=== PATIENT | female | born 1955 | race Caucasian/White ===

== ENCOUNTER 2019-03-12 09:23 | Inpatient (IN) ==
[2019-03-12] MEDS ORDERED: IPRATROPIUM/ALBUTEROL 3 ML AMPUL.NEB NEB ONE ×2 (09:30→12:00)
--- NOTE | 2019-03-12 09:36 | Emergency Department Note ---
SOB HPI - General Chief Complaint: Shortness of Breath/Dyspnea Stated Complaint: SOB Time Seen by Provider: 03/12/19 09:31 Mode of arrival: EMS - History of Present Illness This patient is an asthmatic who was seen in minor care couple days ago and started on some prednisone but no antibiotic. She has been coughing bringing up some yellow phlegm. She has a rescue inhaler but is awaiting prescriptions for her nebulizer. - Related Data Home Medications Medication Instructions Recorded Confirmed albuterol sulfate 2.5 mg/3 mL 2.5 mg INHALATION BID ml 05/29/16 03/08/19 (0.083 %) solution for nebulization albuterol sulfate HFA 90 2 puff INHALATION Q6H g 05/29/16 03/08/19 mcg/actuation aerosol inhaler amlodipine 5 mg tablet 5 mg PO QHS tab 05/29/16 03/08/19 aspirin 81 mg tablet,delayed 81 mg PO .COMPLEX 05/29/16 03/08/19 release bupropion HCl SR 150 mg tablet,12 150 mg PO BID 05/29/16 03/08/19 hr sustained-release ipratropium-albuterol 0.5 mg-3 3 ml INHALATION BID ml 05/29/16 03/08/19 mg(2.5 mg base)/3 mL nebulization soln levothyroxine 75 mcg tablet 75 mcg PO QAM tab 05/29/16 03/08/19 liothyronine 5 mcg tablet 5 mcg PO QHS tab 05/29/16 03/08/19 lorazepam 1 mg tablet See Rx Instructions PO QHS 05/29/16 03/08/19 losartan 100 mg tablet 100 mg PO QAM tab 05/29/16 03/08/19 meclizine 25 mg chewable tablet 25 mg PO TID 05/29/16 03/08/19 metformin ER 500 mg 500 mg PO BID tab 05/29/16 03/08/19 tablet,extended release 24 hr methocarbamol 750 mg tablet See Rx Instructions PO .COMPLEX 05/29/16 03/08/19 multivitamin tablet 1 tab-cap PO QDAY 05/29/16 03/08/19 nefazodone 200 mg tablet 200 mg PO BID 05/29/16 03/08/19 omeprazole 20 mg capsule,delayed 20 mg PO QAM cap 05/29/16 03/08/19 release pravastatin 40 mg tablet 40 mg PO QHS 05/29/16 03/08/19 Previous Rx's Medication Instructions Recorded hydroxychloroquine 200 mg tablet 200 mg PO BID #60 tab 02/09/18 prednisone 50 mg tablet 50 mg PO QDAY 5 Days #5 tab 03/08/19 Azithromycin [Zithromax] 250 mg PO DAILY #4 tab 03/12/19 Allergies Allergy/AdvReac Type Severity Reaction Status Date / Time hydrocodone AdvReac Intermediate bad Verified 03/08/19 09:07 dreams, hallucinations Review of Systems All systems ED: reviewed and negative except as stated. Past Medical History - Past Medical History [facility] Narrative: Medical History (Last Reviewed 03/08/19 @ 09:11 by Meagan Aguilera PA-C) Knee pain, bilateral (Acute) Osteoarthritis (Chronic) Rheumatoid arthritis (Chronic) Encounter for long-term current use of high risk medication (Chronic) Inflammatory arthritis (Chronic) Pain in both hands (Chronic) Anxiety and depression (Chronic) Pain in joint (Chronic) Diabetes mellitus, type II (Chronic) Right knee injury (Chronic) Tendonitis (Chronic) Right wrist pain (Chronic) Asthma (Chronic) Hypothyroidism (Chronic) Decreased libido (Chronic) Hypertension (Chronic) Depression (Chronic) Hyperlipidemia (Chronic) Past Surgical History (Last Reviewed 03/08/19 @ 09:11 by Meagan Aguilera PA-C) Hx of arthroscopy of right knee (Chronic) Family History (Last Reviewed 03/08/19 @ 09:11 by Meagan Aguilera PA-C) Other No pertinent family history Medical history: Reports: asthma, other Surgical history ED: Reports: other - Social History smoking status: Never smoker Alcohol use: Reports: Unknown Drug use: Reports: none Physical Exam Limitations: no limitations General appearance: alert Head: atraumatic Eye: Present: normal appearance ENT: normal exam Neck: Present: normal inspection Chest: Present: normal inspection Respiratory: Present: wheezes Cardiovascular: Present: regular rate, normal rhythm, normal heart sounds Abdominal: Present: soft. Absent: distention, tenderness Neurological: Present: alert Psychiatric: Present: normal affect Skin: Present: warm, dry Course Vital Signs Temperature 99.0 F 03/12/19 09:24 Pulse Rate 89 03/12/19 09:24 Respiratory Rate 15 03/12/19 09:24 Blood Pressure 156/68 03/12/19 09:24 Pulse Oximetry (%) 89 L 03/12/19 09:24 Temperature 99.0 F 03/12/19 09:24 Pulse Rate 88 03/12/19 11:18 Respiratory Rate 18 03/12/19 09:47 Blood Pressure 124/68 03/12/19 11:02 Pulse Oximetry (%) 93 03/12/19 11:18 Shortness of Breath/Dyspnea - MDM Narrative Medical decision making narrative: Lab work and chest x-ray were unremarkable. - Lab Data Lab results reviewed: Yes I reviewed the patient's lab results. Result diagrams: 03/12/19 09:41 03/12/19 09:41 Lab Results 03/12/19 03/12/19 03/12/19 Range/Units 09:41 09:41 09:41 WBC 5.1 (4.5-11.0) K/mcL RBC 4.31 (4.00-5.20) M/mcL Hgb 12.4 (12.0-15.0) g/dL Hct 37.6 (36.0-48.0) % MCV 87.3 (80.0-100.0) fL MCH 28.9 (26.0-34.0) pg MCHC 33.0 (31.0-36.0) g/dL RDW 16.4 H (11.5-14.5) % Plt Count 225 (140-440) K/mcL MPV 7.7 (7.4-10.4) fL Gran % 63.2 (38.0-78.0) % Lymph % (Auto) 26.9 (15.5-49.0) % [place] % (Auto) 9.5 (1.0-12.0) % Eos % (Auto) 0.1 (0.0-7.0) % Baso % (Auto) 0.3 (0.0-2.0) % Gran # 3.2 (1.8-8.0) K/mcL Lymph # (Auto) 1.4 L (1.5-4.8) K/mcL [place] # (Auto) 0.5 (0.1-0.9) K/mcL Eos # (Auto) 0 (0.0-0.7) K/mcL Baso # (Auto) 0 (0.0-0.3) K/mcL VBG Lactic Acid 1.1 (0.5-2.0) mmol/L Sodium 135 (133-145) mmol/L Potassium 3.4 (3.3-5.1) mmol/L Chloride 100 (96-108) mmol/L Carbon Dioxide 26 (22-30) mmol/L Anion Gap 9.0 (8-16) BUN 13 (8-23) mg/dl Creatinine 0.7 (0.6-1.1) mg/dl GFR Calculation 92 Glucose 96 (70-105) mg/dL Calcium 8.2 L (8.6-10.4) mg/dl Total Bilirubin 0.2 (0.0-1.0) mg/dL AST 17 (0-37) U/l ALT 17 (0-40) U/l Alkaline Phosphatase 62 (39-117) U/L Total Protein 5.9 (5.9-8.4) gm/dL Albumin 3.5 (3.2-5.2) gm/dL Globulin 2.4 (2.2-3.7) gm/dL Albumin/Globulin Ratio 1.5 (1.0-2.3) - Radiology Data Radiology results reviewed: Yes I reviewed the patient's radiology results. Disposition Pt seen by [facility]/PA only: No Clinical Impression: Asthma with exacerbation, Bronchitis Disposition: Home, Self-Care Condition: Good Instructions: Asthma (ED), Acute Bronchitis (ED) Prescriptions: Azithromycin [Zithromax] 250 mg PO DAILY #4 tab Referrals: Cassie Hutchinson [Primary Care Provider] - Time of Disposition: 11:54
[2019-03-12] MEDS ORDERED: ONDANSETRON 4 MG/2 ML VIAL IV ONE (09:56)
[2019-03-12] MEDS ORDERED: AZITHROMYCIN 500 MG in DEXTROSE 5% IN WATER 250 ML IV ONE (09:57)
[2019-03-12 10:23] LABS: Basophils # (Auto) 0 K/mcL (0.0-0.3); Basophils % (Auto) 0.3 % (0.0-2.0); Eosinophils # (Auto) 0 K/mcL (0.0-0.7); Eosinophils % (Auto) 0.1 % (0.0-7.0); Granulocytes % (Auto) 63.2 % (38.0-78.0); Lymphocytes # (Auto) 1.4 K/mcL (1.5-4.8); Lymphocytes % (Auto) 26.9 % (15.5-49.0); Mean Cell Volume 87.3 fL (80.0-100.0); Monocytes # (Auto) 0.5 K/mcL (0.1-0.9); Monocytes % (Auto) 9.5 % (1.0-12.0); Platelet Count 225 K/mcL (140-440); RBC 4.31 M/mcL (4.00-5.20); Red Cell Distribution Width 16.4 % (11.5-14.5)
[2019-03-12 10:41] LABS: ALT/SGPT 17 U/l (0-40); Albumin 3.5 gm/dL (3.2-5.2); Albumin/Globulin Ratio 1.5 (1.0-2.3); Alkaline Phosphatase 62 U/L (39-117); Blood Urea Nitrogen 13 mg/dl (8-23)
--- NOTE | 2019-03-12 13:21 | Internal Med History&Physical ---
Medical - H&P: [facility] Patient information: Note initiated : 03/12/19 at 1:18 pm Service Date, if different from initiated Date: [] Patient: Tracy Adams a 64 y/o F admitted on for Shortness of breath. Chief Complaint: [] History of present illness: Ms. Adams is a 64 year old F Is with increasing shortness of breath and cough. Patient states that on Wednesday she developed a productive cough that worsened throughout the week and is productive of yellow sputum. She had shortness shortness of breath which start ed on Wednesday. She went to [place] care and was given prednisone and a prescription for nebulizer as her home nebulizer had broken in the past. She did have her home inhalers which she did use and they gave her some relief but not significant. Last night she can hardly sleep because of shortness of breath and cough and this felt she needed to come in the ED today. In the ED she had a chest x-ray which showed a questionable infiltrate. She was given several breathing treatments and azithromycin. However her peak expiratory flow is 50% of expected and she was becoming hypoxic even off oxygen with sats between 85% to 90. Because of the hypoxia and the still labored breathing admission was requested. She has been around sick contacts. She has felt wheezy. She has a headache. Denies fevers or chills. Occasional nausea Review of Systems: Pertinent positives as above. Denies fever/chills/vomiting/abdominal pain/diarrhea. Remaining 10 point review of systems reviewed negative Medical - H&P: PM Medical history: Medical History (Last Reviewed 03/08/19 @ 09:11 by Meagan Aguilera PA-C) Knee pain, bilateral (Acute) Osteoarthritis (Chronic) Rheumatoid arthritis (Chronic) Encounter for long-term current use of high risk medication (Chronic) Inflammatory arthritis (Chronic) Pain in both hands (Chronic) Anxiety and depression (Chronic) Pain in joint (Chronic) Diabetes mellitus, type II (Chronic) Right knee injury (Chronic) Tendonitis (Chronic) Right wrist pain (Chronic) Asthma (Chronic) Hypothyroidism (Chronic) Decreased libido (Chronic) Hypertension (Chronic) Depression (Chronic) Hyperlipidemia (Chronic) Past Surgical History (Last Reviewed 03/08/19 @ 09:11 by Meagan Aguilera PA-C) Hx of arthroscopy of right knee (Chronic) Right knee arthroplasty [address] Torrez Social History (Last Updated 03/08/19 @ 09:50 by Meagan Aguilera PA-C) Patient denies tobacco but has been exposed to secondhand smoke growing up Denies alcohol use His uses a cane since having a total knee arthroplasty Medical - H&P: Meds Home Medications Medication Instructions Recorded Confirmed Type albuterol sulfate 2.5 mg/3 mL 2.5 mg INHALATION BID ml 05/29/16 03/08/19 History (0.083 %) solution for nebulization albuterol sulfate HFA 90 2 puff INHALATION Q6H g 05/29/16 03/08/19 History mcg/actuation aerosol inhaler amlodipine 5 mg tablet 5 mg PO QHS tab 05/29/16 03/08/19 History aspirin 81 mg tablet,delayed 81 mg PO .COMPLEX 05/29/16 03/08/19 History release bupropion HCl SR 150 mg tablet,12 150 mg PO BID 05/29/16 03/08/19 History hr sustained-release ipratropium-albuterol 0.5 mg-3 3 ml INHALATION BID ml 05/29/16 03/08/19 History mg(2.5 mg base)/3 mL nebulization soln levothyroxine 75 mcg tablet 75 mcg PO QAM tab 05/29/16 03/08/19 History liothyronine 5 mcg tablet 5 mcg PO QHS tab 05/29/16 03/08/19 History lorazepam 1 mg tablet See Rx Instructions PO QHS 05/29/16 03/08/19 History losartan 100 mg tablet 100 mg PO QAM tab 05/29/16 03/08/19 History meclizine 25 mg chewable tablet 25 mg PO TID 05/29/16 03/08/19 History metformin ER 500 mg 500 mg PO BID tab 05/29/16 03/08/19 History tablet,extended release 24 hr methocarbamol 750 mg tablet See Rx Instructions PO .COMPLEX 05/29/16 03/08/19 History multivitamin tablet 1 tab-cap PO QDAY 05/29/16 03/08/19 History nefazodone 200 mg tablet 200 mg PO BID 05/29/16 03/08/19 History omeprazole 20 mg capsule,delayed 20 mg PO QAM cap 05/29/16 03/08/19 History release pravastatin 40 mg tablet 40 mg PO QHS 05/29/16 03/08/19 History hydroxychloroquine 200 mg tablet 200 mg PO BID #60 tab 02/09/18 03/08/19 Rx prednisone 50 mg tablet 50 mg PO QDAY 5 Days #5 tab 03/08/19 03/08/19 Rx Azithromycin [Zithromax] 250 mg PO DAILY #4 tab 03/12/19 Rx Allergies Allergy/AdvReac Type Severity Reaction Status Date / Time hydrocodone AdvReac Intermediate bad Verified 03/08/19 09:07 dreams, hallucinations Medical - H&P: Exam - Constitutional Vitals: Temp Pulse Resp BP Pulse Ox 99.0 F 93 H 23 H 131/80 92 03/12/19 09:24 03/12/19 12:34 03/12/19 11:31 03/12/19 11:31 03/12/19 12:34 Exam: General: Alert, Awake, No acute Distress Eyes/N/T: EOMI, PEERL, Head/Neck: neck supple, normocephalic atraumatic CV: RRR, No murmurs, normal s1/s2 Pulm: Bilateral mild rhonchi, occasional wheeze, appears labored Abd: soft, nontender, +BS x4 Ext: no clubbing/cyanosis/edema Neuro: Alert, no focal deficits, moves all extremities, CN 2-12 grossly intact, symmetrical strength b/l upper/lower, sensations intact b/l upper/lower Skin: warm/dry Medical - H&P: Reslt - Labs CBC & Chem 7: 03/12/19 09:41 03/12/19 09:41 Labs: Short CBC 03/12/19 Range/Units 09:41 WBC 5.1 (4.5-11.0) K/mcL Hgb 12.4 (12.0-15.0) g/dL Hct 37.6 (36.0-48.0) % Plt Count 225 (140-440) K/mcL BMP 03/12/19 09:41 Sodium 135 Potassium 3.4 Chloride 100 Carbon Dioxide 26 BUN 13 Creatinine 0.7 Glucose 96 Calcium 8.2 L Liver Function 03/12/19 Range/Units 09:41 Total Bilirubin 0.2 (0.0-1.0) mg/dL AST 17 (0-37) U/l ALT 17 (0-40) U/l Alkaline Phosphatase 62 (39-117) U/L Albumin 3.5 (3.2-5.2) gm/dL Medical - H&P: A/P - Narrative A/P Narrative: A: *Acute hypoxic respiratory failure: Secondary to likely viral illness inducing exacerbation of her underlying asthma *Acute Asthmatic Bronchitis: PEF 57% *DM: *HTN/HLD: *Depression/anxiety: *Rheumatoid arthritis: Follows with Dr. Stoll *GERD: *Hypothyroidism: * P: -IV steroids -Empiric antibiotics, pending pro-calcitonin -Respiratory viral panel -Serial peak expiratory flow -Continuous pulse ox -IS/Acapella, Nebs/RT - -Continue home blood pressure and diabetic medications -SSI -ppx: Lovenox
[2019-03-12] MEDS ORDERED: DEXTROSE 31 GM ORAL.SUSP PO PRN (14:24)
[2019-03-12] MEDS ORDERED: DEXTROSE 50% 50 ML VIAL IV PRN (14:24)
[2019-03-12] MEDS ORDERED: PROCHLORPERAZINE 10 MG/2 ML VIAL IV PRN (14:24)
[2019-03-12] MEDS ORDERED: ONDANSETRON 4 MG ODT TABLET SL PRN (14:24)
[2019-03-12] MEDS ORDERED: IPRATROPIUM/ALBUTEROL 3 ML AMPUL.NEB NEB PRN (14:24)
--- NOTE | 2019-03-12 14:26 | XRay Report ---
HISTORY: Cough and shortness of breath FINDINGS: There is a mild patchy alveolar infiltrate in the left lower lobe. The remainder of the lung ascencio are clear. There is no pleural effusion or evidence of adenopathy. The heart size is normal. The spine is kyphotic and there is mild arthritis. IMPRESSION: Mild left lower lobe pneumonia Interpreted and Authenticated by: Yvan Gil 03/12/19
[2019-03-12] MEDS ORDERED: METHOCARBAMOL 750 MG TABLET PO PRN (14:27)
[2019-03-12] MEDS ORDERED: MELATONIN 3 MG TABLET PO PRN (14:45)
[2019-03-12] MEDS: methylPREDNISolone SOD SUCC 40 MG/ML VIAL IV SCH ×2 (15:27→22:56)
[2019-03-12] MEDS: 0.9 % SODIUM CHLORIDE 10 ML SYRINGE IV SCH ×2 (15:28→21:03)
[2019-03-12] MEDS: metFORMIN 500 MG TAB.XL.24H PO SCH (17:55)
[2019-03-12] MEDS: INSULIN LISPRO 1 UNIT/0.01 ML UNIT SQ SCH ×2 (17:56→21:01)
[2019-03-12] MEDS: IPRATROPIUM/ALBUTEROL 3 ML AMPUL.NEB NEB SCH (19:16)
[2019-03-12] MEDS: LORazepam 1 MG TABLET PO SCH (20:42)
[2019-03-12] MEDS: LIOTHYRONINE 5 MCG TABLET PO SCH (21:02)
[2019-03-12] MEDS: SIMVASTATIN 20 MG TABLET PO SCH (21:03)
[2019-03-12] MEDS: NEFAZODONE HCL 200 MG PO SCH (21:03)
[2019-03-12] MEDS: FAMOTIDINE 20 MG TABLET PO SCH (21:03)
[2019-03-12] MEDS: amLODIPine 5 MG TABLET PO SCH (21:03)
[2019-03-12] MEDS: buPROPion 150 MG TAB.SR.12H PO SCH (21:04)
[2019-03-12] MEDS: ACETAMINOPHEN 325 MG TABLET PO PRN (21:19)
[2019-03-13] MEDS: IPRATROPIUM/ALBUTEROL 3 ML AMPUL.NEB NEB SCH ×4 (01:09→18:52)
[2019-03-13] MEDS ORDERED: METHOCARBAMOL 750 MG TABLET PO PRN (06:15)
[2019-03-13] MEDS: 0.9 % SODIUM CHLORIDE 10 ML SYRINGE IV SCH ×3 (06:39→22:37)
[2019-03-13] MEDS: methylPREDNISolone SOD SUCC 40 MG/ML VIAL IV SCH ×3 (06:39→22:31)
--- NOTE | 2019-03-13 06:39 | Internal Med Progress Note ---
Medical - PN: Subj Patient information: Note initiated : 03/13/19 at 6:35 am Service Date, if different from initiated Date: [] Patient: Tracy Adams a 64 y/o F admitted on 03/12/19 for Shortness of breath. Chief Complaint: [] Interval history: Ms. Adams is a 64 year old F Is with increasing shortness of breath and cough. Patient states that on Wednesday she developed a productive cough that worsened throughout the week and is productive of yellow sputum. She had shortness shortness of breath which starte d on Wednesday. She went to [place] care and was given prednisone and a prescription for nebulizer as her home nebulizer had broken in the past. She did have her home inhalers which she did use and they gave her some relief but not significant. Last night she can hardly sleep because of shortness of breath and cough and this felt she needed to come in the ED today. In the ED she had a chest x-ray which showed a questionable infiltrate. She was given several breathing treatments and azithromycin. However her peak expiratory flow is 50% of expected and she was becoming hypoxic even off oxygen with sats between 85% to 90. Because of the hypoxia and the still labored breathing admission was requested. She has been around sick contacts. She has felt wheezy. She has a headache. Denies fevers or chills. Occasional nausea 4/15 Difficult to sleep in the hospital per the patient. She has continued shortness of breath and productive cough which is becoming less yellow she says. However her shortness of breath and cough are improving. No other new complaints. Review of Systems: denies headache/fever/chills/nausea/vomiting/chest or abdominal pain/diarrhea. Otherwise see above. - Constitutional Vitals: Vital Signs Temp Pulse Resp BP Pulse Ox 97.5 F 76 20 125/65 94 03/13/19 04:00 03/13/19 04:00 03/13/19 04:00 03/13/19 04:00 03/13/19 04:00 Period Temp Pulse Resp BP Sys/Guajardo Pulse Ox Last 24 Hr 97.5 F-99.0 F 74-94 15-24 124-156/55-81 2-94 Intake and Output 03/12/19 03/13/19 03/13/19 21:59 05:59 13:59 Intake Total 400 Output Total 1202 302 Balance -1202 98 Weight 109.316 kg Intake & Output: Intake & Output 03/12/19 03/13/19 03/13/19 21:59 05:59 13:59 Intake Total 400 Output Total 1202 302 Balance -1202 98 Weight 109.316 kg Intake: Oral 400 Output: Void Amount 1200 300 # of times incontinent of urine 2 2 Other: Meal Dinner Percent of Meal Consumed 75% Urine Appearance Clear Urine Color Pale Urine Odor Normal # Voids 1 Exam: General: Alert, Awake, No acute Distress Eyes/N/T: EOMI, Head/Neck: neck supple, CV: RRR, No murmurs, Pulm: Improved rhonchi, occasional wheeze, nonlabored Abd: soft, nontender, +BS x4 Ext: no clubbing/cyanosis, trace bilateral lower extremity edema Neuro: Alert, no focal deficits, moves all extremities, Skin: warm/dry Medical - PN: Obj Da - Labs CBC & Chem 7: 03/12/19 09:41 03/12/19 09:41 Labs: Abnormal Lab Results 03/12/19 03/12/19 09:41 09:41 RDW 16.4 H Lymph # (Auto) 1.4 L Calcium 8.2 L Meds: Medications Acetaminophen (Tylenol) 650 mg PO Q6HP PRN PRN Reason: PAIN/FEVER > 101 Last Admin: 03/12/19 21:19 Dose: 650 mg Documented by: Albuterol/Ipratropium (Duoneb) 3 ml NEB Q6HRT [facility] Last Admin: 03/13/19 01:09 Dose: 3 ml Documented by: Albuterol/Ipratropium (Duoneb) 3 ml NEB Q6HRT PRN PRN Reason: Bronchospasm Amlodipine Besylate (Norvasc) 5 mg PO QHS [facility] Last Admin: 03/12/19 21:03 Dose: 5 mg Documented by: Aspirin (Aspirin) 81 mg PO MoWeFr@0900 [facility] Bupropion HCl (Wellbutrin Sr) 150 mg PO BID [facility] Last Admin: 03/12/19 21:04 Dose: Not Given Documented by: Dextrose (Dextrose 50%) 0 ml IV UD PRN PRN Reason: Hypoglycemia Diagnostic Test (Pha) (Accu-Chek) 1 each FS ACHS [facility] Last Admin: 03/12/19 20:42 Dose: 1 each Documented by: Enoxaparin Sodium (Lovenox) 40 mg SQ DAILY [facility] Famotidine (Pepcid) 20 mg PO BID [facility] Last Admin: 03/12/19 21:03 Dose: 20 mg Documented by: Glucose (Insta-Glucose) 15 gm PO PRN PRN PRN Reason: Hypoglycemia Azithromycin 500 mg/ Dextrose 250 mls @ 250 mls/hr IV Q24H [facility]; Protocol Stop: 03/15/19 09:59 Insulin Human Lispro (Humalog) 0 unit SQ [facility]; Protocol Last Admin: 03/12/19 21:01 Dose: 4 units Documented by: [facility] Liothyronine Sodium (Cytomel) 5 mcg PO QHS [facility] Last Admin: 03/12/19 21:02 Dose: 5 mcg Documented by: Lorazepam (Ativan) 0.5 - 1 mg PO QHS [facility] Last Admin: 03/12/19 20:42 Dose: Not Given Documented by: Losartan Potassium (Cozaar) 100 mg PO DAILY [facility] Melatonin (Melatonin 3mg Tablet) 3 mg PO HSP PRN PRN Reason: Sleep Last Admin: 03/12/19 21:03 Dose: 3 mg Documented by: [facility] Admin: 03/12/19 17:55 Dose: 500 mg Documented by: Methocarbamol (Robaxin) 375 mg PO TIDP PRN PRN Reason: Pain Methylprednisolone Sodium Succinate (Solu-Medrol) 40 mg IV Q8 [facility] Last Admin: 03/12/19 22:56 Dose: 40 mg Documented by: Ondansetron HCl (Zofran Odt) 4 mg SL Q6HP PRN PRN Reason: Nausea And Vomiting Nefazodone Hcl 200 (Mg Tab) 1 dose PO BID [facility] Last Admin: 03/12/19 21:03 Dose: 1 dose Documented by: Prochlorperazine (Compazine) 5 mg IV Q4HP PRN PRN Reason: Nausea And Vomiting Simvastatin (Zocor) 20 mg PO HS [facility] Last Admin: 03/12/19 21:03 Dose: 20 mg Documented by: Sodium Chloride (Saline Flush) 10 ml IV Q8 [facility] Last Admin: 03/12/19 21:03 Dose: 10 ml Documented by: Medical - PN: A/P - Time Spent With Patient Total time spent is greater than 50% in coordination of care (as documented) at patient's floor/unit and/or counseling patient: - Narrative A/P Narrative: A: *Acute hypoxic respiratory failure: Secondary to likely viral illness inducing exacerbation of her underlying asthma *Acute Asthmatic Bronchitis: PEF 57% on admit. 2/2 Human Metapneumovirus -PCT low, *DM: *HTN/HLD: *Depression/anxiety: *Rheumatoid arthritis: Follows with Dr. Stoll *GERD: *Hypothyroidism: * P: -IV steroids -Empiric antibiotics, d/c soon -Serial peak expiratory flow -Continuous pulse ox -IS/Acapella, Nebs/RT - -Continue home blood pressure and diabetic medications -SSI -ppx: Lovenox Medical - PN: Qual - VTE Deep Vein Thrombosis/Pulmonary Embolism Present on Admission: No
[2019-03-13] MEDS: LEVOTHYROXINE 75 MCG TABLET PO SCH (07:59)
[2019-03-13] MEDS: metFORMIN 500 MG TAB.XL.24H PO SCH ×2 (08:19→17:45)
[2019-03-13] MEDS: INSULIN LISPRO 1 UNIT/0.01 ML UNIT SQ SCH ×4 (08:20→22:30)
--- NOTE | 2019-03-13 08:34 | XRay Report ---
CLINICAL INFORMATION: Pneumonia COMPARISON: 03/12/2019 FINDINGS: Moderate patchy left lower lobe infiltrate shows improved aeration from yesterday. There is minor atelectasis of the right base. Heart size, mediastinum and pulmonary vessels remain normal. Small left pleural effusion noted. IMPRESSION: Improving left lower lobe infiltrate Interpreted and Authenticated by: Steve Rivera 03/13/19
[2019-03-13] MEDS: FAMOTIDINE 20 MG TABLET PO SCH ×2 (10:04→22:31)
[2019-03-13] MEDS: ENOXAPARIN 40 MG/0.4 ML SYRINGE SQ SCH (10:04)
[2019-03-13] MEDS: buPROPion 150 MG TAB.SR.12H PO SCH ×2 (10:04→22:31)
[2019-03-13] MEDS: ASPIRIN 81 MG TAB.CHEW PO SCH (10:04)
[2019-03-13] MEDS: LOSARTAN 50 MG TABLET PO SCH (10:04)
[2019-03-13] MEDS: NEFAZODONE HCL 200 MG PO SCH ×2 (10:05→22:32)
[2019-03-13] MEDS: AZITHROMYCIN 500 MG in DEXTROSE 5% IN WATER 250 ML IV SCH (10:24)
[2019-03-13] MEDS: ACETAMINOPHEN 325 MG TABLET PO PRN (11:05)
[2019-03-13] MEDS: SIMVASTATIN 20 MG TABLET PO SCH (22:31)
[2019-03-13] MEDS: amLODIPine 5 MG TABLET PO SCH (22:31)
[2019-03-13] MEDS: LIOTHYRONINE 5 MCG TABLET PO SCH (22:32)
[2019-03-13] MEDS: LORazepam 1 MG TABLET PO SCH (22:35)
[2019-03-14] MEDS: IPRATROPIUM/ALBUTEROL 3 ML AMPUL.NEB NEB SCH ×4 (01:17→18:49)
[2019-03-14] MEDS: methylPREDNISolone SOD SUCC 40 MG/ML VIAL IV SCH ×2 (05:04→21:00)
[2019-03-14] MEDS: 0.9 % SODIUM CHLORIDE 10 ML SYRINGE IV SCH ×3 (05:04→23:03)
[2019-03-14 06:04] LABS: ALT/SGPT 16 U/l (0-40); Albumin 3.3 gm/dL (3.2-5.2); Albumin/Globulin Ratio 1.3 (1.0-2.3); Alkaline Phosphatase 59 U/L (39-117); Bilirubin,Direct < 0.2 mg/dL (0.0-0.3); Blood Urea Nitrogen 19 mg/dl (8-23); Gamma Glutamyl Transpeptidase 15 U/L (5-36); Uric Acid 3.5 mg/dL (2.5-8.0)
[2019-03-14] MEDS: LEVOTHYROXINE 75 MCG TABLET PO SCH (07:27)
[2019-03-14] MEDS: metFORMIN 500 MG TAB.XL.24H PO SCH ×2 (07:27→17:39)
--- NOTE | 2019-03-14 07:43 | Internal Med Progress Note ---
Medical - PN: Subj Patient information: Note initiated : 03/14/19 at 7:40 am Service Date, if different from initiated Date: [] Patient: Tracy Adams a 64 y/o F admitted on 03/12/19 for Shortness of breath. Chief Complaint: [] Interval history: Ms. Adams is a 64 year old F Is with increasing shortness of breath and cough. Patient states that on Wednesday she developed a productive cough that worsened throughout the week and is productive of yellow sputum. She had shortness shortness of breath which starte d on Wednesday. She went to [facility] and was given prednisone and a prescription for nebulizer as her home nebulizer had broken in the past. She did have her home inhalers which she did use and they gave her some relief but not significant. Last night she can hardly sleep because of shortness of breath and cough and this felt she needed to come in the ED today. In the ED she had a chest x-ray which showed a questionable infiltrate. She was given several breathing treatments and azithromycin. However her peak expiratory flow is 50% of expected and she was becoming hypoxic even off oxygen with sats between 85% to 90. Because of the hypoxia and the still labored breathing admission was requested. She has been around sick contacts. She has felt wheezy. She has a headache. Denies fevers or chills. Occasional nausea 03/13 Difficult to sleep in the hospital per the patient. She has continued shortness of breath and productive cough which is becoming less yellow she says. However her shortness of breath and cough are improving. No other new complaints. 03/14 Continued cough. Becoming more thin. Shortness of breath slowly improving. Has "head cold" today with sinus congestion, headache. Some nausea. Constipation. improving slowly, still on O2. CXR yesterday unremarkable. Review of Systems: denies fever/chills/vomiting/chest or abdominal pain/diarrhea. Otherwise see above. - Constitutional Vitals: Vital Signs Temp Pulse Resp BP Pulse Ox 98.5 F 81 20 140/76 92 03/14/19 03:16 03/14/19 06:55 03/14/19 06:55 03/14/19 03:16 03/14/19 06:47 Period Temp Pulse Resp BP Sys/Guajardo Pulse Ox Last 24 Hr 96.6 F-98.5 F 72-91 18-22 116-140/61-76 92-96 Intake and Output 03/13/19 03/14/19 03/14/19 21:59 05:59 13:59 Intake Total 800 1025 Output Total 300 401 Balance 500 624 Weight 109.769 kg Intake & Output: Intake & Output 03/13/19 03/14/19 03/14/19 21:59 05:59 13:59 Intake Total 800 1025 Output Total 300 401 Balance 500 624 Weight 109.769 kg Intake: Oral 800 1025 Output: Void Amount 300 400 # of times incontinent of urine 1 Other: Meal Nourishment/Supplement Percent of Meal Consumed 100% Nourishment/Supplement name Cheese stick snack from kitchen Urine Appearance Clear Urine Color Bright Yellow Exam: General: Alert, Awake, No acute Distress Eyes/N/T: EOMI, Head/Neck: neck supple, CV: RRR, No murmurs, Pulm: minimal rhonchi on right, no wheezing, better aeration today - slowly clearing up Abd: soft, nontender, +BS x4 Ext: no clubbing/cyanosis, 1+ bilateral lower extremity edema Neuro: Alert, no focal deficits, moves all extremities, Skin: warm/dry Medical - PN: Obj Da - Labs CBC & Chem 7: 03/12/19 09:41 03/14/19 04:00 Labs: Abnormal Lab Results 03/14/19 03/12/19 03/12/19 04:00 09:41 09:41 RDW 16.4 H Lymph # (Auto) 1.4 L Glucose 170 H Calcium 8.2 L Meds: Medications Acetaminophen (Tylenol) 650 mg PO Q6HP PRN PRN Reason: PAIN/FEVER > 101 Last Admin: 03/13/19 11:05 Dose: 650 mg Documented by: Albuterol/Ipratropium (Duoneb) 3 ml NEB Q6HRT [facility] Last Admin: 03/14/19 06:45 Dose: 3 ml Documented by: Albuterol/Ipratropium (Duoneb) 3 ml NEB Q6HRT PRN PRN Reason: Bronchospasm Amlodipine Besylate (Norvasc) 5 mg PO QHS [facility] Last Admin: 03/13/19 22:31 Dose: 5 mg Documented by: Aspirin (Aspirin) 81 mg PO MoWeFr@0900 [facility] Last Admin: 03/13/19 10:04 Dose: 81 mg Documented by: Bupropion HCl (Wellbutrin Sr) 150 mg PO BID [facility] Last Admin: 03/13/19 22:31 Dose: 150 mg Documented by: Dextrose (Dextrose 50%) 0 ml IV UD PRN PRN Reason: Hypoglycemia Diagnostic Test (Pha) (Accu-Chek) 1 each FS [facility] Last Admin: 03/14/19 07:16 Dose: 1 each Documented by: Enoxaparin Sodium (Lovenox) 40 mg SQ DAILY [facility] Last Admin: 03/13/19 10:04 Dose: 40 mg Documented by: Famotidine (Pepcid) 20 mg PO BID [facility] Last Admin: 03/13/19 22:31 Dose: 20 mg Documented by: Glucose (Insta-Glucose) 15 gm PO PRN PRN PRN Reason: Hypoglycemia Azithromycin 500 mg/ Dextrose 250 mls @ 250 mls/hr IV Q24H [facility]; Protocol Stop: 03/15/19 09:59 Last Infusion: 03/13/19 12:18 Dose: Infused Documented by: Insulin Human Lispro (Humalog) 0 unit SQ [facility]; Protocol Last Admin: 03/13/19 22:30 Dose: 4 units Documented by: [facility] Last Admin: 03/14/19 07:27 Dose: 75 mcg Documented by: Liothyronine Sodium (Cytomel) 5 mcg PO QHS [facility] Last Admin: 03/13/19 22:32 Dose: 5 mcg Documented by: Lorazepam (Ativan) 0.5 - 1 mg PO QHS [facility] Last Admin: 03/13/19 22:35 Dose: Not Given Documented by: Losartan Potassium (Cozaar) 100 mg PO DAILY [facility] Last Admin: 03/13/19 10:04 Dose: 100 mg Documented by: Melatonin (Melatonin 3mg Tablet) 3 mg PO HSP PRN PRN Reason: Sleep Last Admin: 03/12/19 21:03 Dose: 3 mg Documented by: Metformin HCl (Glucophage) 500 mg PO BIDCC [facility] Last Admin: 03/14/19 07:27 Dose: 500 mg Documented by: Methocarbamol (Robaxin) 375 mg PO TIDP PRN PRN Reason: Pain Methylprednisolone Sodium Succinate (Solu-Medrol) 40 mg IV Q8 [facility] Last Admin: 03/14/19 05:04 Dose: 40 mg Documented by: Ondansetron HCl (Zofran Odt) 4 mg SL Q6HP PRN PRN Reason: Nausea And Vomiting Nefazodone Hcl 200 (Mg Tab) 1 dose PO BID [facility] Last Admin: 03/13/19 22:32 Dose: 1 dose Documented by: Prochlorperazine (Compazine) 5 mg IV Q4HP PRN PRN Reason: Nausea And Vomiting Simvastatin (Zocor) 20 mg PO HS [facility] Last Admin: 03/13/19 22:31 Dose: 20 mg Documented by: Sodium Chloride (Saline Flush) 10 ml IV Q8 [facility] Last Admin: 03/14/19 05:04 Dose: 10 ml Documented by: Medical - PN: A/P - Time Spent With Patient Total time spent is greater than 50% in coordination of care (as documented) at patient's floor/unit and/or counseling patient: - Narrative A/P Narrative: A: *Acute hypoxic respiratory failure: Secondary to viral illness inducing exacerba tion of her underlying asthma -now on 1L *Acute Asthmatic Bronchitis: PEF 57% on admit. 2/2 Human Metapneumovirus -PCT low, -Slowly improving *DM: *HTN/HLD: *Depression/anxiety: *Rheumatoid arthritis: Follows with Dr. Stoll *GERD: *Hypothyroidism: * P: -IV steroids (wean) -Empiric antibiotics, d/c -Serial peak expiratory flow -Continuous pulse ox -continue attempt to wean off O2 -IS/Acapella, Nebs/RT -add mucinex -Continue home blood pressure and diabetic medications -SSI -ppx: Lovenox Medical - PN: Qual - VTE Deep Vein Thrombosis/Pulmonary Embolism Present on Admission: No
[2019-03-14] MEDS: INSULIN LISPRO 1 UNIT/0.01 ML UNIT SQ SCH ×4 (08:11→20:59)
[2019-03-14] MEDS ORDERED: guaiFENesin 600 MG TAB.SR.12H PO ONE (08:30)
[2019-03-14] MEDS ORDERED: POLYETHYLENE GLYCOL 3350 17 GM PACKET PO ONE (08:30)
[2019-03-14] MEDS ORDERED: FUROSEMIDE 40 MG/4 ML VIAL IV ONE (08:55)
[2019-03-14] MEDS: NEFAZODONE HCL 200 MG PO SCH ×2 (09:56→21:01)
[2019-03-14] MEDS: buPROPion 150 MG TAB.SR.12H PO SCH ×2 (09:57→21:01)
[2019-03-14] MEDS: LOSARTAN 50 MG TABLET PO SCH (09:58)
[2019-03-14] MEDS: FAMOTIDINE 20 MG TABLET PO SCH ×2 (09:58→21:01)
[2019-03-14] MEDS: LORATADINE 10 MG TABLET PO SCH (09:58)
[2019-03-14] MEDS: AZITHROMYCIN 500 MG in DEXTROSE 5% IN WATER 250 ML IV SCH (09:59)
[2019-03-14] MEDS: ENOXAPARIN 40 MG/0.4 ML SYRINGE SQ SCH (10:00)
[2019-03-14] MEDS: ACETAMINOPHEN 325 MG TABLET PO PRN (10:36)
--- NOTE | 2019-03-14 12:00 | Discharge Summary ---
Medical - DS: Prov Patient information: Note initiated : 03/14/19 at 11:58 am Service Date, if different from initiated Date: [] Patient: Tracy Adams 64 y/o F admitted on 03/12/19 for Shortness of breath. Chief Complaint: [] Date of admission: 03/12/19 14:13 Discharge date: 03/16/19 Primary care physician: Cassie Hutchinson Consults: 03/12/19 12:31 Consult to Physician [CONS] Stat Comment: Consulting Provider: Kwabena Soler Reason For Exam: Physician to Consult Medical - DS: Meds - Discharge Medications Prescriptions: Benzonatate [Tessalon Perle] 100 mg PO TIDP PRN #20 cap PRN Reason: Cough predniSONE [Prednisone] 40 mg PO QAMCC #1 tab Active and Home Medications: Home Medications albuterol sulfate 2.5 mg/3 mL (0.083 %) solution for nebulization 2.5 mg INHALATION BID ml 05/29/16 [History Confirmed 03/12/19 Last Taken Unknown] albuterol sulfate HFA 90 mcg/actuation aerosol inhaler 2 puff INHALATION Q6H g 05/29/16 [History Confirmed 03/12/19 Last Taken Unknown] amlodipine 5 mg tablet 5 mg PO QHS tab 05/29/16 [History Confirmed 03/12/19 Last Taken Unknown] aspirin 81 mg tablet,delayed release 81 mg PO .COMPLEX 05/29/16 [History Confirmed 03/12/19 Last Taken Unknown] bupropion HCl SR 150 mg tablet,12 hr sustained-release 150 mg PO BID 05/29/16 [History Confirmed 03/12/19 Last Taken Unknown] ipratropium-albuterol 0.5 mg-3 mg(2.5 mg base)/3 mL nebulization soln 3 ml INHALATION BID ml 05/29/16 [History Confirmed 03/14/19 Last Taken Unknown] levothyroxine 75 mcg tablet 75 mcg PO QAM tab 05/29/16 [History Confirmed 03/12/19 Last Taken Unknown] liothyronine 5 mcg tablet 5 mcg PO QHS tab 05/29/16 [History Confirmed 03/12/19 Last Taken Unknown] lorazepam 1 mg tablet See Rx Instructions PO QHS 05/29/16 [History Confirmed 03/12/19 Last Taken Unknown] losartan 100 mg tablet 100 mg PO QAM tab 05/29/16 [History Confirmed 03/12/19 Last Taken Unknown] metformin ER 500 mg tablet,extended release 24 hr 500 mg PO BID tab 05/29/16 [History Confirmed 03/12/19 Last Taken Unknown] methocarbamol 750 mg tablet See Rx Instructions PO TID PRN 05/29/16 [History Confirmed 03/12/19 Last Taken Unknown] multivitamin tablet 1 tab-cap PO QDAY 05/29/16 [History Confirmed 03/12/19 Last Taken Unknown] nefazodone 200 mg tablet 200 mg PO BID 05/29/16 [History Confirmed 03/12/19 Last Taken Unknown] omeprazole 20 mg capsule,delayed release 20 mg PO QAM cap 05/29/16 [History Confirmed 03/12/19 Last Taken Unknown] pravastatin 40 mg tablet 40 mg PO QHS 05/29/16 [History Confirmed 03/12/19 Last Taken Unknown] Melatonin/Pyridoxine [Melatonin 5 mg Tablet] 5 mg PO QHS PRN 03/12/19 [History Confirmed 03/12/19 Last Taken Unknown] Medical - DS: Hosp Hospital course: Mr. Adams is a 64 year old F Ms. Adams is a 64 year old F Is with increasing shortness of breath and cough. Patient states that on Wednesday she developed a productive cough that worsened throughout the week and is productive of yellow sputum. She had shortness shortness of breath which started on Wednesday. She went to [facility] and was given prednisone and a prescription for nebulizer as her home nebulizer had broken in the past. She did have her home inhalers which she did use and they gave her some relief but not significant. Last night she can hardly sleep because of shortness of breath and cough and this felt she needed to come in the ED today. In the ED she had a chest x-ray which showed a questionable infiltrate. She was given several breathing treatments and azithromycin. However her peak expiratory flow is 50% of expected and she was becoming hypoxic even off oxygen with sats between 85% to 90. Because of the hypoxia and the still labored breathing admission was requested. She has been around sick contacts. She has felt wheezy. She has a headache. Denies fevers or chills. Occasional nausea 4/15 Difficult to sleep in the hospital per the patient. She has continued shortness of breath and productive cough which is becoming less yellow she says. However her shortness of breath and cough are improving. No other new complaints. 03/14 Continued cough. Becoming more thin. Shortness of breath slowly improving. Has "head cold" today with sinus congestion, headache. Some nausea. Constipation. improving slowly, still on O2. CXR yesterday unremarkable. 03/15 Feeling much better breathing easier. Still has shortness of breath and cough. Still dyspneic with exertion but again states she is improving and is only on 1 L. And hopeful to get off today of oxygen. Has constipation and a little bit of headache. She feels like her lungs are opening up better. 03/16 Continues to feel better. Qualified for home oxygen this morning. Constipation. No new complaints. Stable for discharge Discharge diagnosis: Asthmatic bronchitis hypoxic respiratory failure Secondary discharge diagnosis: Diabetes hypertension depression anxiety rheumatoid arthritis GERD hypothyroidism - Time Spent with Patient Total time spent providing and/or coordinating discharge services: Greater than 30 minutes Medical - DS: Exam - Constitutional Vitals: Vital Signs Temp Pulse Pulse Resp BP BP Pulse Ox 03/14/19 08:00 97.6 F 91 H 18 138/72 03/14/19 06:55 81 20 03/14/19 06:47 92 03/14/19 03:16 98.5 F 91 H 22 140/76 92 03/13/19 23:05 98.0 F 79 20 116/66 95 03/13/19 22:40 92 03/13/19 20:04 98.0 F 89 20 136/68 93 03/13/19 18:52 76 18 03/13/19 16:00 97.6 F 20 135/68 96 03/13/19 13:25 82 18 Intake and Output 03/13/19 03/14/19 03/14/19 21:59 05:59 13:59 Intake Total 800 1025 800 Output Total 300 401 Balance 500 624 800 Intake: Oral 800 1025 800 Output: Void Amount 300 400 # of times incontinent of urine 1 Other: Meal Nourishment/Supplement Breakfast Percent of Meal Consumed 100% 100% Feeding Ability Independent Nourishment/Supplement name Cheese stick snack from kitchen Urine Appearance Clear Urine Color Bright Yellow Weight 109.769 kg Medical - DS: Data Labs on day of discharge: Labs from last 24 hours 03/14/19 04:00 Sodium 137 Potassium 4.1 Chloride 99 Carbon Dioxide 25 Anion Gap 13.0 BUN 19 Creatinine 0.7 GFR Calculation 92 Glucose 170 H Uric Acid 3.5 Calcium 8.7 Phosphorus 3.5 Magnesium 2.0 Total Bilirubin 0.2 Direct Bilirubin < 0.2 GGT 15 AST 12 ALT 16 Alkaline Phosphatase 59 Lactate Dehydrogenase 186 Total Protein 5.9 Albumin 3.3 Globulin 2.6 Albumin/Globulin Ratio 1.3 Triglycerides 63 Medical - DS: A/P - Patient/Caregiver Discharge Instructions Activity: increase activity as tolerated Diet: Consistent Carbohydrate Prescriptions: predniSONE [Prednisone] 40 mg PO [facility] #1 tab - Follow up Plan Follow up with: Cassie Hutchinson [Primary Care Provider] - Disposition: Home, Self-Care Prognosis: Good Rehab Potential: Fair Medical - DS: Qual - VTE Deep Vein Thrombosis/Pulmonary Embolism Present on Admission: No
[2019-03-14] MEDS: SIMVASTATIN 20 MG TABLET PO SCH (21:00)
[2019-03-14] MEDS: amLODIPine 5 MG TABLET PO SCH (21:00)
[2019-03-14] MEDS: guaiFENesin 600 MG TAB.SR.12H PO SCH (21:01)
[2019-03-14] MEDS: LIOTHYRONINE 5 MCG TABLET PO SCH (21:03)
[2019-03-14] MEDS: LORazepam 1 MG TABLET PO SCH (21:03)
[2019-03-15] MEDS: IPRATROPIUM/ALBUTEROL 3 ML AMPUL.NEB NEB SCH ×4 (00:56→19:19)
[2019-03-15 06:05] LABS: Blood Urea Nitrogen 23 mg/dl (8-23)
--- NOTE | 2019-03-15 08:09 | Internal Med Progress Note ---
Medical - PN: Subj Patient information: Note initiated : 03/15/19 at 8:05 am Service Date, if different from initiated Date: [] Patient: Tracy Adams a 64 y/o F admitted on 03/12/19 for Shortness of breath. Chief Complaint: [] Interval history: Ms. Adams is a 64 year old F Is with increasing shortness of breath and cough. Patient states that on Wednesday she developed a productive cough that worsened throughout the week and is productive of yellow sputum. She had shortness shortness of breath which starte d on Wednesday. She went to [facility] and was given prednisone and a prescription for nebulizer as her home nebulizer had broken in the past. She did have her home inhalers which she did use and they gave her some relief but not significant. Last night she can hardly sleep because of shortness of breath and cough and this felt she needed to come in the ED today. In the ED she had a chest x-ray which showed a questionable infiltrate. She was given several breathing treatments and azithromycin. However her peak expiratory flow is 50% of expected and she was becoming hypoxic even off oxygen with sats between 85% to 90. Because of the hypoxia and the still labored breathing admission was requested. She has been around sick contacts. She has felt wheezy. She has a headache. Denies fevers or chills. Occasional nausea 03/13 Difficult to sleep in the hospital per the patient. She has continued shortness of breath and productive cough which is becoming less yellow she says. However her shortness of breath and cough are improving. No other new complaints. 03/14 Continued cough. Becoming more thin. Shortness of breath slowly improving. Has "head cold" today with sinus congestion, headache. Some nausea. Constipation. improving slowly, still on O2. CXR yesterday unremarkable. 03/15 Feeling much better breathing easier. Still has shortness of breath and cough. Still dyspneic with exertion but again states she is improving and is only on 1 L. And hopeful to get off today of oxygen. Has constipation and a little bit of headache. She feels like her lungs are opening up better. Review of Systems: denies fever/chills/vomiting/chest or abdominal pain/diarrhea. Otherwise see above. - Constitutional Vitals: Vital Signs Temp Pulse Resp BP Pulse Ox 98.5 F 77 22 120/68 93 03/15/19 03:45 03/15/19 03:45 03/15/19 03:45 03/15/19 03:45 03/15/19 03:45 Period Temp Pulse Resp BP Sys/Guajardo Pulse Ox Last 24 Hr 97.8 F-98.7 F 77-92 16-22 120-136/56-76 90-93 Intake and Output 03/14/19 03/15/19 03/15/19 21:59 05:59 13:59 Intake Total 1770 100 Output Total 300 Balance 1470 100 Weight 108.182 kg Intake & Output: Intake & Output 03/14/19 03/15/19 03/15/19 21:59 05:59 13:59 Intake Total 1770 100 Output Total 300 Balance 1470 100 Weight 108.182 kg Intake: IV 250 Zithromax 500 mg In Dextrose 5% 250 in Water 250 ml @ 250 mls/hr IV Q24H [facility] Rx#:[id number] Oral 1520 100 Output: Void Amount 300 Other: Meal Dinner Percent of Meal Consumed 100% Feeding Ability Independent Urine Appearance Clear Urine Color Bright Yellow Urine Odor Normal # Voids 1 Exam: General: Alert, Awake, No acute Distress Eyes/N/T: EOMI, Head/Neck: neck supple, CV: RRR, No murmurs, Pulm: no rhonchi/wheezing Abd: soft, nontender, +BS x4 Ext: no clubbing/cyanosis, trace to 1+ bilateral lower extremity edema Neuro: Alert, no focal deficits, moves all extremities, Skin: warm/dry Medical - PN: Obj Da - Labs CBC & Chem 7: 03/12/19 09:41 03/15/19 04:00 Labs: Abnormal Lab Results 03/15/19 03/14/19 03/12/19 04:00 04:00 09:41 RDW Lymph # (Auto) Glucose 171 H 170 H Calcium 8.2 L 03/12/19 09:41 RDW 16.4 H Lymph # (Auto) 1.4 L Glucose Calcium Meds: Medications Acetaminophen (Tylenol) 650 mg PO Q6HP PRN PRN Reason: PAIN/FEVER > 101 Last Admin: 03/14/19 10:36 Dose: 650 mg Documented by: Albuterol/Ipratropium (Duoneb) 3 ml NEB Q6HRT [facility] Last Admin: 03/15/19 07:20 Dose: 3 ml Documented by: Albuterol/Ipratropium (Duoneb) 3 ml NEB Q6HRT PRN PRN Reason: Bronchospasm Amlodipine Besylate (Norvasc) 5 mg PO QHS [facility] Last Admin: 03/14/19 21:00 Dose: 5 mg Documented by: Aspirin (Aspirin) 81 mg PO MoWeFr@0900 [facility] Last Admin: 03/13/19 10:04 Dose: 81 mg Documented by: Bupropion HCl (Wellbutrin Sr) 150 mg PO BID [facility] Last Admin: 03/14/19 21:01 Dose: 150 mg Documented by: Dextrose (Dextrose 50%) 0 ml IV UD PRN PRN Reason: Hypoglycemia Diagnostic Test (Pha) (Accu-Chek) 1 each FS [facility] Last Admin: 03/14/19 20:59 Dose: 1 each Documented by: Enoxaparin Sodium (Lovenox) 40 mg SQ DAILY [facility] Last Admin: 03/14/19 10:00 Dose: 40 mg Documented by: Famotidine (Pepcid) 20 mg PO BID [facility] Last Admin: 03/14/19 21:01 Dose: 20 mg Documented by: Glucose (Insta-Glucose) 15 gm PO PRN PRN PRN Reason: Hypoglycemia Guaifenesin (Mucinex) 600 mg PO BID [facility] Last Admin: 03/14/19 21:01 Dose: 600 mg Documented by: Azithromycin 500 mg/ Dextrose 250 mls @ 250 mls/hr IV Q24H [facility]; Protocol Stop: 03/15/19 09:59 Last Infusion: 03/14/19 21:04 Dose: Infused Documented by: Insulin Human Lispro (Humalog) 0 unit SQ [facility]; Protocol Last Admin: 03/14/19 20:59 Dose: Not Given Documented by: Levothyroxine Sodium (Synthroid) 75 mcg PO QAMAC [facility] Last Admin: 03/14/19 07:27 Dose: 75 mcg Documented by: Liothyronine Sodium (Cytomel) 5 mcg PO QHS [facility] Last Admin: 03/14/19 21:03 Dose: 5 mcg Documented by: Loratadine (Claritin) 10 mg PO DAILY [facility] Last Admin: 03/14/19 09:58 Dose: 10 mg Documented by: Lorazepam (Ativan) 0.5 - 1 mg PO QHS [facility] Last Admin: 03/14/19 21:03 Dose: Not Given Documented by: Losartan Potassium (Cozaar) 100 mg PO DAILY [facility] Last Admin: 03/14/19 09:58 Dose: 100 mg Documented by: Melatonin (Melatonin 3mg Tablet) 3 mg PO HSP PRN PRN Reason: Sleep Last Admin: 03/12/19 21:03 Dose: 3 mg Documented by: Metformin HCl (Glucophage) 500 mg PO BIDCC [facility] Last Admin: 03/14/19 17:39 Dose: 500 mg Documented by: Methocarbamol (Robaxin) 375 mg PO TIDP PRN PRN Reason: Pain Methylprednisolone Sodium Succinate (Solu-Medrol) 40 mg IV Q12 [facility] Last Admin: 03/14/19 21:00 Dose: 40 mg Documented by: Ondansetron HCl (Zofran Odt) 4 mg SL Q6HP PRN PRN Reason: Nausea And Vomiting Nefazodone Hcl 200 (Mg Tab) 1 dose PO BID [facility] Last Admin: 03/14/19 21:01 Dose: 1 dose Documented by: Polyethylene Glycol (Miralax) 17 gm PO DAILYP PRN PRN Reason: Constipation Prochlorperazine (Compazine) 5 mg IV Q4HP PRN PRN Reason: Nausea And Vomiting Simvastatin (Zocor) 20 mg PO HS [facility] Last Admin: 03/14/19 21:00 Dose: 20 mg Documented by: Sodium Chloride (Saline Flush) 10 ml IV Q8 [facility] Last Admin: 03/14/19 23:03 Dose: 10 ml Documented by: Medical - PN: A/P - Time Spent With Patient Total time spent is greater than 50% in coordination of care (as documented) at patient's floor/unit and/or counseling patient: - Narrative A/P Narrative: A: *Acute hypoxic respiratory failure: Secondary to viral illness inducing exacerbation of her underlying asthma -on 1L sats low 90's -Still requiring oxygen but hoping to wean off later today *Acute Asthmatic Bronchitis: PEF 57% on admit. 2/2 Human Metapneumovirus -PCT low -Slowly improving *DM: *HTN/HLD: *Depression/anxiety: *Rheumatoid arthritis: Follows with Dr. Stoll *GERD: *Hypothyroidism: * P: -IV steroids (wean) -Serial peak expiratory flow -Continuous pulse ox -continue attempt to wean off O2 -IS/Acapella, Nebs/RT -added mucinex -Continue home blood pressure and diabetic medications -SSI -ppx: Lovenox Medical - PN: Qual - VTE Deep Vein Thrombosis/Pulmonary Embolism Present on Admission: No
[2019-03-15] MEDS: metFORMIN 500 MG TAB.XL.24H PO SCH ×2 (08:22→17:03)
[2019-03-15] MEDS: LEVOTHYROXINE 75 MCG TABLET PO SCH (08:22)
[2019-03-15] MEDS: 0.9 % SODIUM CHLORIDE 10 ML SYRINGE IV SCH ×3 (08:23→21:47)
[2019-03-15] MEDS ORDERED: FUROSEMIDE 20 MG/2 ML VIAL IV ONE (09:17)
[2019-03-15] MEDS: INSULIN LISPRO 1 UNIT/0.01 ML UNIT SQ SCH ×4 (09:21→21:40)
[2019-03-15] MEDS ORDERED: guaiFENesin/CODEINE 10 ML UDC PO PRN (09:21)
[2019-03-15] MEDS ORDERED: LACTULOSE 20 GM/30 ML ORAL.SOL PO ONE (09:21)
[2019-03-15] MEDS: AZITHROMYCIN 500 MG in DEXTROSE 5% IN WATER 250 ML IV SCH (10:08)
[2019-03-15] MEDS: LOSARTAN 50 MG TABLET PO SCH (10:26)
[2019-03-15] MEDS: NEFAZODONE HCL 200 MG PO SCH ×2 (10:26→21:45)
[2019-03-15] MEDS: LORATADINE 10 MG TABLET PO SCH (10:29)
[2019-03-15] MEDS: ASPIRIN 81 MG TAB.CHEW PO SCH (10:29)
[2019-03-15] MEDS: FAMOTIDINE 20 MG TABLET PO SCH ×2 (10:30→21:46)
[2019-03-15] MEDS: buPROPion 150 MG TAB.SR.12H PO SCH ×2 (10:30→21:46)
[2019-03-15] MEDS: ENOXAPARIN 40 MG/0.4 ML SYRINGE SQ SCH (10:32)
[2019-03-15] MEDS: methylPREDNISolone SOD SUCC 40 MG/ML VIAL IV SCH ×2 (11:03→21:44)
[2019-03-15] MEDS: guaiFENesin 600 MG TAB.SR.12H PO SCH (11:46)
[2019-03-15] MEDS ORDERED: LORazepam 0.5 MG TABLET PO ONE (16:05)
[2019-03-15] MEDS: ACETAMINOPHEN 325 MG TABLET PO PRN (16:14)
[2019-03-15] MEDS: POLYETHYLENE GLYCOL 3350 17 GM PACKET PO PRN (21:40)
[2019-03-15] MEDS: LORazepam 1 MG TABLET PO SCH (21:41)
[2019-03-15] MEDS: LIOTHYRONINE 5 MCG TABLET PO SCH (21:45)
[2019-03-15] MEDS: amLODIPine 5 MG TABLET PO SCH (21:46)
[2019-03-15] MEDS: SIMVASTATIN 20 MG TABLET PO SCH (21:46)
[2019-03-16] MEDS: IPRATROPIUM/ALBUTEROL 3 ML AMPUL.NEB NEB SCH ×3 (01:56→12:57)
[2019-03-16] MEDS: 0.9 % SODIUM CHLORIDE 10 ML SYRINGE IV SCH (04:53)
[2019-03-16] MEDS: INSULIN LISPRO 1 UNIT/0.01 ML UNIT SQ SCH ×2 (07:43→11:39)
[2019-03-16] MEDS: LEVOTHYROXINE 75 MCG TABLET PO SCH (07:48)
[2019-03-16] MEDS: metFORMIN 500 MG TAB.XL.24H PO SCH (07:49)
[2019-03-16] MEDS: NEFAZODONE HCL 200 MG PO SCH (09:01)
[2019-03-16] MEDS: LOSARTAN 50 MG TABLET PO SCH (09:02)
[2019-03-16] MEDS: FAMOTIDINE 20 MG TABLET PO SCH (09:02)
[2019-03-16] MEDS: ENOXAPARIN 40 MG/0.4 ML SYRINGE SQ SCH (09:02)
[2019-03-16] MEDS: LORATADINE 10 MG TABLET PO SCH (09:02)
[2019-03-16] MEDS: methylPREDNISolone SOD SUCC 40 MG/ML VIAL IV SCH (09:02)
[2019-03-16] MEDS: buPROPion 150 MG TAB.SR.12H PO SCH (09:03)
[2019-03-16] MEDS ORDERED: LACTULOSE 20 GM/30 ML ORAL.SOL PO ONE (09:18)
[2019-03-16] MEDS ORDERED: LACTULOSE 20 GM/30 ML ORAL.SOL PO PRN (09:18)
[2019-03-16] MEDS ORDERED: SENNOSIDES 1 TABLET PO ONE (09:19)
[2019-03-16] MEDS ORDERED: SENNOSIDES 1 TABLET PO PRN (09:19)
[2019-03-16] MEDS: POLYETHYLENE GLYCOL 3350 17 GM PACKET PO PRN (10:58)
== END 2019-03-16 15:00 | disposition home or self-care (01) | DRG 190 ==
LOC: ED 09:23 → MEDSUR 14:13
PROVIDERS: ADMIT Internal Medicine; ATTEND Internal Medicine